=== PATIENT | male | born 1970 | race Caucasian/White ===

== ENCOUNTER 2022-03-04 18:10 | Inpatient (IN) ==
[2022-03-04] MEDS ORDERED: MULTI-VITAMIN INFUSION 10 ML, THIAMINE HCL 100 MG, FOLIC ACID 1 MG in SODIUM CHLORIDE 0... IV ONE (18:43)
--- NOTE | 2022-03-04 18:44 | Emergency Department Note ---
Impression & Plan Acute depression, Alcohol abuse, Elevated LFTs, Thrombocytopenia ED Provider Note Name: LD KEE Age: 51 Sex: M Arrives Via: Walk-In Informant: Patient, ED Provider: Art Velasquez MD Chief Complaint: Mental Health evaluation Impression: As per impressions above Medical Decision Makin-year-old gentleman who is never been to this facility has a history of hypertension, dyslipidemia, anxiety/depression, ADHD arrives for evaluation of worsening depression and generalized malaise. In addition of this patient is also having episodes of severe rage and anger. Initially patient was adamant that this was medically induced. I discussed the fact that he admits to be drinking each evening he has tremors as would be expected with some mild wit hdrawal and his LFTs are elevated with a low platelet. He also has evidence of age varying bruising and abrasions over arms legs consistent with bumping into things. I suspect he drinks more than he is willing to he denies any history of DTs or seizure. His denies this happening either. After long discussion with patient he really does feel that he needs psychiatric management. He states that he is severely depressed and things are now right in his head. I not feel that he acutely needs hospitalization given no previous DTs or issues with stopping alcohol. He is adamant no suicide attempt or any thoughts of harm to self prior to arrival thus I do not think the LFT elevation requires hospitalization at this time. I did note that it would have to be followed up by his PCP as well. At this time patient is a voluntary hospitalization for psychiatric illness. Bed placement is being attempted on a 201. Prior Medical Record and Triage/Nursing Notes reviewed by Me Additional history obtained from chart Differentials:Mood disorder, infection, hypoglycemia, electrolyte abnormalities, cardiac sources, intracerebral event, toxicologic, trauma, neurologic, as well as other pathologies. Vital Signs: reviewed and remarkable for no significant abnormalities Interventions: nicotine patch, motrin po Labs:Reviewed and remarkable for elevated lfts, low platelets Consults: Case management - Plan 201 psychiatric hospitalization Plan: Disposition: Signed out to Dr Thomas Pending placement Condition: Good History of Present Illness:51-year-old gentleman arrives for evaluation of rage issues. Patient reportedly has been having worsening fatigue, weight loss, anger, tremulous amongst other symptoms. He has been following with his PCP down in [place] with reportedly having multiple labs testing and evaluations. Patient does admit that he drinks several large high alcohol beers an evening. He also notes that he has frequent falls and stumbling and injuries. He states he just does not heal well. He was reportedly treated for some sort of asthma exacerbation a couple weeks ago with steroids which helped. Patient states that he has no thoughts of harming himself or others but he is depressed. He says he has no energy. His son about 9 months ago when he admits he has been thinking about a lot recently. He has family members who have required psychiat travis hospitalization. Patient denies any fevers, chills, headache, chest pain, shortness of breath, abdominal pain, back pain, urinary/bowel symptoms or other concerning signs or symptoms. He does note that he gets lightheaded when he stands and his blood pressure drops. Per patient reportedly makes statements about wanting to kill or harm others when he gets enraged however patient denies that. He states he has no thoughts of harming anyone. ROS: See above HPI for pertinent positives & negatives. A total of 10 systems reviewed and were otherwise negative. Past Medical History:Hypertension, dyslipidemia, anxiety/depression, ADHD Past Surgical History:Multiple back surgeries Family History:States sister and mother have autoimmune disease Social History:Currently unemployed, stable Home Medications:See Below Allergies:nkda Vitals:Blood Pressure: 119/92, Pulse 100, RR 16, T 3.6C, O2 99% on RA Physical Exam: GENERAL: Patient is well appearing and in mild distress. Tremulous (declines Ativan) HEAD: Small abrasion right upper posterior scalp, no TTP EYES: No scleral icterus, unremarkable pupils. ENT: Mucous membranes moist, no nasal congestion. NECK: No masses appreciated, nomeningismus, trachea is midline. RESPIRATORY: No dyspnea. Clear to auscultation and equal bilaterally. No wheeze, no rhonchi. CARDIOVASCULAR: Regular rate and rhythm.No murmurs, rubs, gallops appreciated. GASTROINTESTINAL: Abdomen soft, non-tender, no peritonitis.Bowel sounds positive.No masses appreciated. BACK: No midline tenderness, no CVA tenderness EXTREMITIES: Varying aged bruising/abrasions over arms/legs. Normal motion all extremities, no cyanosis, no edema. NEUROLOGIC: Alert and oriented, no acute motor or sensory deficits, no focal weakness, cranial nerves grossly intact. SKIN: No rash, no jaundice, no diaphoresis. PSYCH: Sad/depressed/anxious, denies suicidal ideation, calm, cooperative GCS: 15 ED Course: Times/Reassessments: Repeat evaluations patient is now stating that he thinks his primary issue is his psychiatric illness. He does wish to be admitted for psychiatric placement. He continues to have no evidence of fulminant withdrawal other than a mild tremor. Per patient and he is over 24 hours since last drink of alcohol Art Velasquez MD Past Med/Surg History Social History Smoking Status: Unknown if ever smoked Feels Safe at Home: Yes Home Meds Home Medications Medication Instructions Recorded Confirmed alprazolam 2 mg tablet 2 mg PO BID PRN Anxiety 03/04/22 03/04/22 cyanocobalamin (vitamin B-12) 1,000 mcg IM WK 03/04/22 03/04/22 1,000 mcg/mL injection solution cyclobenzaprine 5 mg tablet 5 mg PO TID PRN Pain 03/04/22 03/04/22 dextroamphetamine-amphetamine 10 10 mg PO HS 03/04/22 03/04/22 mg tablet dextroamphetamine-amphetamine 15 15 mg PO BID 03/04/22 03/04/22 mg tablet epinephrine 0.3 mg/0.3 mL 0.3 mg IM PRN Allergic Reaction 03/04/22 injection, auto-injector escitalopram oxalate 20 mg tablet 20 mg PO DAILY 03/04/22 03/04/22 lisinopril 40 mg tablet 40 mg PO DAILY 03/04/22 03/04/22 metoprolol tartrate 25 mg tablet 25 mg PO BID 03/04/22 03/04/22 quetiapine 100 mg tablet 100 mg PO HS 03/04/22 03/04/22 Results & Data (ED) Vital Signs Vital Signs - 24 hr 03/04/22 18:13 03/04/22 22:00 03/04/22 23:26 Temperature 36.6 C Temperature Source Temporal Artery Scan Pulse Rate 100 H Pulse Rate [Right Finger] 90 59 L Pulse Rhythm [Right Finger] Regular Pulse Strength [Right Finger] Normal Respiratory Rate 16 20 18 Respiratory Effort / Characteristics Non-Labored Non-Labored Non-Labored Spontaneous Respiratory Depth Normal Normal Normal Respiratory Pattern Regular Blood Pressure 119/92 Blood Pressure [Right Arm] 138/90 128/73 Blood Pressure Mean 101 Blood Pressure Mean [Right Arm] 106 91 Blood Pressure Position [Right Arm] Lying Pulse Oximetry 99 98 94 Oxygen Delivery Method Room Air Room Air Room Air Sepsis Recent Fever Within 48 Hours No Sepsis New/Unexplained Change in Mental Status No Sepsis Action Taken by Nursing No Action Required Laboratory Data Result diagrams: 03/04/22 19:33 03/04/22 19:33 Lab Results 03/04/22 03/04/22 03/04/22 Range/Units 18:26 18:26 19:33 WBC 8.94 (4.8-10.8) K/ul RBC 5.48 (4.63-6.08) M/uL Hgb 16.5 (14.0-18.0) g/dl Hct 49.7 (40.1-51.0) % MCV 90.7 (80.0-100.0) fL MCH 30.1 (25.0-34.0) pg MCHC 33.2 (32.0-36.0) g/dL RDW Std Deviation 51.0 H (36.4-46.3) fL RDW Coeff of Robert 15.3 H (11.5-14.5) % Plt Count 119 L (130-400) K/uL MPV 13.1 H (9.4-12.4) fL Immature Gran % (Auto) 0.4 % Neut % (Auto) 81.6 % Lymph % (Auto) 8.7 % [place] % (Auto) 8.4 % Eos % (Auto) 0.2 % Baso % (Auto) 0.7 % Neut # (Auto) 7.29 H (1.4-6.5) K/uL Lymph # (Auto) 0.78 L (1.2-3.4) K/uL [place] # (Auto) 0.75 (0.24-0.82) K/uL Eos # (Auto) 0.02 (0-0.50) K/uL Baso # (Auto) 0.06 (0-0.2) K/uL Immature Gran # (Auto) 0.04 H (0.00-0.02) K/uL PT (9.0-12.0) Seconds INR (0.9-1.1) APTT (21.0-31.0) Seconds PTT Ratio Sodium (136-145) mmol/L Potassium (3.5-5.1) mmol/L Chloride (98-107) mmol/L Carbon Dioxide (21-32) mmol/L Anion Gap (3-11) BUN (6-23) mg/dl Creatinine (0.6-1.4) mg/dl Est Cr Clr Drug Dosing ml/min Est GFR ( Amer) ml/min Est GFR (Non-Af Amer) ml/min BUN/Creatinine Ratio (10-20) Glucose (70-99(Fasting)) mg/dl Calcium (8.5-10.1) mg/dl Total Bilirubin (0.2-1.0) mg/dl AST (13-39) U/L ALT (7-52) U/L Alkaline Phosphatase (34-104) U/L Total Creatine Kinase (30-223) U/L Total Protein (6.0-8.3) gm/dl Albumin (3.4-5.0) gm/dl Globulin (2.5-4.0) gm/dl Albumin/Globulin Ratio (0.9-2) TSH (0.300-4.500) uIu/ml Urine Color [place] Urine Appearance Clear (Clear) Urine pH 5.5 (4.5-7.5) Ur Specific [place] 1.019 (1.000-1.030) Urine Protein Negative (Negative) Urine Glucose (UA) Negative (Negative) Urine Ketones Negative (Negative) Urine Blood Negative (Negative) Urine Nitrite Negative (Negative) Urine Bilirubin Negative (Negative) Urine Urobilinogen Negative (Negative) Ur Leukocyte Esterase Negative (Negative) Salicylates (3.0-30) mg/dl Urine Opiates Screen Neg (Neg) Ur Methadone, Qual Neg (Neg) Acetaminophen (10-30) ug/ml Urine Barbiturates Neg (Neg) Ur Phencyclidine (PCP) Neg (Neg) U Amphetamin/Meth Scrn Pos H (Neg) MDMA (Ecstasy) Screen Neg (Neg) U Benzodiazepines Scrn Pos H (Neg) Ur Cocaine Metabolite Neg (Neg) U Marijuana (THC) Screen Pos H (Neg) Ethyl Alcohol mg/dL (<10.0) mg/dl SARS-CoV-2, RNA, NAAT (NEGATIVE) 03/04/22 03/04/22 03/04/22 Range/Units 19:33 19:33 19:33 WBC (4.8-10.8) K/ul RBC (4.63-6.08) M/uL Hgb (14.0-18.0) g/dl Hct (40.1-51.0) % MCV (80.0-100.0) fL MCH (25.0-34.0) pg MCHC (32.0-36.0) g/dL RDW Std Deviation (36.4-46.3) fL RDW Coeff of Robert (11.5-14.5) % Plt Count (130-400) K/uL MPV (9.4-12.4) fL Immature Gran % (Auto) % Neut % (Auto) % Lymph % (Auto) % [place] % (Auto) % Eos % (Auto) % Baso % (Auto) % Neut # (Auto) (1.4-6.5) K/uL Lymph # (Auto) (1.2-3.4) K/uL [place] # (Auto) (0.24-0.82) K/uL Eos # (Auto) (0-0.50) K/uL Baso # (Auto) (0-0.2) K/uL Immature Gran # (Auto) (0.00-0.02) K/uL PT (9.0-12.0) Seconds INR (0.9-1.1) APTT (21.0-31.0) Seconds PTT Ratio Sodium 136 (136-145) mmol/L Potassium 4.2 (3.5-5.1) mmol/L Chloride 100 (98-107) mmol/L Carbon Dioxide 28 (21-32) mmol/L Anion Gap 8 (3-11) BUN 16 (6-23) mg/dl Creatinine 1.03 (0.6-1.4) mg/dl Est Cr Clr Drug Dosing 104.4 ml/min Est GFR ( Amer) 98.4 ml/min Est GFR (Non-Af Amer) 84.9 ml/min BUN/Creatinine Ratio 15.5 (10-20) Glucose 100 H (70-99(Fasting)) mg/dl Calcium 9.6 (8.5-10.1) mg/dl Total Bilirubin 1.4 H (0.2-1.0) mg/dl AST 53 H (13-39) U/L ALT 71 H (7-52) U/L Alkaline Phosphatase 112 H (34-104) U/L Total Creatine Kinase 140 (30-223) U/L Total Protein 7.9 (6.0-8.3) gm/dl Albumin 4.5 (3.4-5.0) gm/dl Globulin 3.4 (2.5-4.0) gm/dl Albumin/Globulin Ratio 1.3 (0.9-2) TSH 2.418 (0.300-4.500) uIu/ml Urine Color Urine Appearance (Clear) Urine pH (4.5-7.5) Ur Specific [place] (1.000-1.030) Urine Protein (Negative) Urine Glucose (UA) (Negative) Urine Ketones (Negative) Urine Blood (Negative) Urine Nitrite (Negative) Urine Bilirubin (Negative) Urine Urobilinogen (Negative) Ur Leukocyte Esterase (Negative) Salicylates < 3.0 L (3.0-30) mg/dl Urine Opiates Screen (Neg) Ur Methadone, Qual (Neg) Acetaminophen < 3 L (10-30) ug/ml Urine Barbiturates (Neg) Ur Phencyclidine (PCP) (Neg) U Amphetamin/Meth Scrn (Neg) MDMA (Ecstasy) Screen (Neg) U Benzodiazepines Scrn (Neg) Ur Cocaine Metabolite (Neg) U Marijuana (THC) Screen (Neg) Ethyl Alcohol mg/dL (<10.0) mg/dl SARS-CoV-2, RNA, NAAT (NEGATIVE) 03/04/22 03/04/22 03/04/22 Range/Units 19:33 19:33 21:41 WBC (4.8-10.8) K/ul RBC (4.63-6.08) M/uL Hgb (14.0-18.0) g/dl Hct (40.1-51.0) % MCV (80.0-100.0) fL MCH (25.0-34.0) pg MCHC (32.0-36.0) g/dL RDW Std Deviation (36.4-46.3) fL RDW Coeff of Robert (11.5-14.5) % Plt Count (130-400) K/uL MPV (9.4-12.4) fL Immature Gran % (Auto) % Neut % (Auto) % Lymph % (Auto) % [place] % (Auto) % Eos % (Auto) % Baso % (Auto) % Neut # (Auto) (1.4-6.5) K/uL Lymph # (Auto) (1.2-3.4) K/uL [place] # (Auto) (0.24-0.82) K/uL Eos # (Auto) (0-0.50) K/uL Baso # (Auto) (0-0.2) K/uL Immature Gran # (Auto) (0.00-0.02) K/uL PT 10.1 (9.0-12.0) Seconds INR 0.9 (0.9-1.1) APTT 25.9 (21.0-31.0) Seconds PTT Ratio 0.9 Sodium (136-145) mmol/L Potassium (3.5-5.1) mmol/L Chloride (98-107) mmol/L Carbon Dioxide (21-32) mmol/L Anion Gap (3-11) BUN (6-23) mg/dl Creatinine (0.6-1.4) mg/dl Est Cr Clr Drug Dosing ml/min Est GFR ( Amer) ml/min Est GFR (Non-Af Amer) ml/min BUN/Creatinine Ratio (10-20) Glucose (70-99(Fasting)) mg/dl Calcium (8.5-10.1) mg/dl Total Bilirubin (0.2-1.0) mg/dl AST (13-39) U/L ALT (7-52) U/L Alkaline Phosphatase (34-104) U/L Total Creatine Kinase (30-223) U/L Total Protein (6.0-8.3) gm/dl Albumin (3.4-5.0) gm/dl Globulin (2.5-4.0) gm/dl Albumin/Globulin Ratio (0.9-2) TSH (0.300-4.500) uIu/ml Urine Color Urine Appearance (Clear) Urine pH (4.5-7.5) Ur Specific [place] (1.000-1.030) Urine Protein (Negative) Urine Glucose (UA) (Negative) Urine Ketones (Negative) Urine Blood (Negative) Urine Nitrite (Negative) Urine Bilirubin (Negative) Urine Urobilinogen (Negative) Ur Leukocyte Esterase (Negative) Salicylates (3.0-30) mg/dl Urine Opiates Screen (Neg) Ur Methadone, Qual (Neg) Acetaminophen (10-30) ug/ml Urine Barbiturates (Neg) Ur Phencyclidine (PCP) (Neg) U Amphetamin/Meth Scrn (Neg) MDMA (Ecstasy) Screen (Neg) U Benzodiazepines Scrn (Neg) Ur Cocaine Metabolite (Neg) U Marijuana (THC) Screen (Neg) Ethyl Alcohol mg/dL < 10.0 (<10.0) mg/dl SARS-CoV-2, RNA, NAAT NEGATIVE (NEGATIVE) Administered Medications Alprazolam (Alprazolam 0.5 Mg Tablet) 2 mg PO BID PRN PRN Reason: Anxiety Stop: 04/03/22 22:29 Last Admin: 03/04/22 23:23 Dose: 2 mg Documented By: NEVA Metoprolol Tartrate (Metoprolol Tartrate 25 Mg Tab) 25 mg PO BID GABO Stop: 04/03/22 22:29 Last Admin: 03/04/22 23:19 Dose: 25 mg Documented By: NEVA Non-Formulary Medication (Dextroamphetamine-Amphetamine) 10 mg PO HS GABO Stop: 04/03/22 22:34 Last Admin: 03/04/22 23:23 Dose: Not Given Documented By: NEVA Quetiapine Fumarate (Quetiapine Fumarate 100 Mg Tablet) 100 mg PO HS [facility] Stop: 04/03/22 22:29 Last Admin: 03/04/22 23:19 Dose: 100 mg Documented By: NEVA Discontinued Medications Multivitamins 10 ml/ Thiamine HCl 100 mg/ Folic Acid 1 mg/Sodium Chloride 1,011.2 mls @ 1,011.2 mls/hr IV .Q1H ONE Stop: 03/04/22 19:42 Last Infusion: 03/04/22 20:24 Dose: 0 mls/hr Documented By: Admin: 03/04/22 19:10 Dose: 1,011.2 mls/hr Documented By: ARIA Ibuprofen (Ibuprofen 600 Mg Tab) 600 mg PO NOW STA Stop: 03/05/22 00:04 Last Admin: 03/05/22 00:06 Dose: 600 mg Documented By: NEVA Nicotine (Nicotine 14 Mg/24 Hr Patch) 14 mg TD NOW STA Stop: 03/04/22 22:04 Last Admin: 03/04/22 22:15 Dose: 14 mg Documented By: CHRISTIANO Discharge Plan Visit Data Chief Complaint: Mental Health Evaluation Stated Complaint: MENTAL HEALTH EVAL ED Provider: Art Velasquez Discharge Problem: Acute depression, Alcohol abuse, Elevated LFTs, Thrombocytopenia Forms Stand Alone Forms: [facility] [employer], Suicide Prevention Resources Prescriptions Prescriptions: No Action metoprolol tartrate 25 mg tablet 25 mg PO BID quetiapine 100 mg tablet 100 mg PO HS dextroamphetamine-amphetamine 10 mg tablet 10 mg PO HS cyanocobalamin (vitamin B-12) 1,000 mcg/mL solution 1,000 mcg IM WK dextroamphetamine-amphetamine 15 mg tablet 15 mg PO BID alprazolam 2 mg tablet 2 mg PO BID PRN (Reason: Anxiety) epinephrine 0.3 mg/0.3 mL auto-injector 0.3 mg IM PRN (Reason: Allergic Reaction) lisinopril 40 mg tablet 40 mg PO DAILY escitalopram oxalate 20 mg tablet 20 mg PO DAILY cyclobenzaprine 5 mg tablet 5 mg PO TID PRN (Reason: Pain) Referrals Referrals: Irving Kaiser DO [Primary Care Provider] -
[2022-03-04 18:58] LABS: Appearance Urine Clear (Clear); Bilirubin Urine Negative (Negative); Blood Urine Negative (Negative); Color Urine Orange; Glucose Urine UA Negative (Negative); Ketones Urine Negative (Negative); Leukocyte Esterase Urine Negative (Negative); Nitrite Urine Negative (Negative); Protein Urine Negative (Negative); Specific Gravity Urine 1.019 (1.000-1.030); Urobilinogen Urine Negative (Negative); pH Urine 5.5 (4.5-7.5)
[2022-03-04 19:21] LABS: Amphetamines+Metham, Urine Pos (Neg); Barbiturates, Urine Neg (Neg); Benzodiazepine, Urine Pos (Neg); Cocaine, Urine Neg (Neg); MDMA (Ecstacy), Urine Neg (Neg); Methadone, Urine Neg (Neg); Opiate, Urine Neg (Neg); Phencyclidine, Urine Neg (Neg)
[2022-03-04 19:45] LABS: Hematocrit (blood only) 49.7 % (40.1-51.0); Hemoglobin 16.5 g/dl (14.0-18.0); Mean Corpuscular Hemoglobin 30.1 pg (25.0-34.0); Mean Corpuscular Hgb Conc 33.2 g/dL (32.0-36.0); Mean Corpuscular Volume 90.7 fL (80.0-100.0); RDW Coefficient of Variation 15.3 % (11.5-14.5); Red Blood Count 5.48 M/uL (4.63-6.08); White Blood Count 8.94 K/ul (4.8-10.8)
[2022-03-04 19:49] LABS: Basophils # (auto) 0.06 K/uL (0-0.2); Basophils % (auto) 0.7 %; Eosinophils # (auto) 0.02 K/uL (0-0.50); Eosinophils % (auto) 0.2 %; Immature Granulocytes # (auto) 0.04 K/uL (0.00-0.02); Immature Granulocytes % (auto) 0.4 %; Lymphocytes # (auto) 0.78 K/uL (1.2-3.4); Lymphocytes % (auto) 8.7 %; Mean Platelet Volume 13.1 fL (9.4-12.4); Monocytes # (auto) 0.75 K/uL (0.24-0.82); Monocytes % (auto) 8.4 %; Neutrophils # (auto) 7.29 K/uL (1.4-6.5); Neutrophils % (auto) 81.6 %; Platelet Count 119 K/uL (130-400)
[2022-03-04 19:57] LABS: INR 0.9 (0.9-1.1); Partial Thromboplastin Ratio 0.9; Partial Thromboplastin Time 25.9 Seconds (21.0-31.0); Prothrombin Time 10.1 Seconds (9.0-12.0)
[2022-03-04 20:07] LABS: Albumin Globulin Ratio 1.3 (0.9-2); Albumin Level 4.5 gm/dl (3.4-5.0); BUN Creatinine Ratio 15.5 (10-20); Bilirubin,Total 1.4 mg/dl (0.2-1.0); Calcium 9.6 mg/dl (8.5-10.1); Creatinine Clr Calc Pharmacy 104.4 ml/min; Est GFR (African American) 98.4 ml/min; Est GFR (Non-African American) 84.9 ml/min; Globulin 3.4 gm/dl (2.5-4.0); Potassium 4.2 mmol/L (3.5-5.1); Total Protein 7.9 gm/dl (6.0-8.3)
[2022-03-04 20:10] LABS: Acetaminophen < 3 ug/ml (10-30); Salicylate < 3.0 mg/dl (3.0-30)
[2022-03-04] MEDS ORDERED: NICOTINE 14 MG/24 HR PATCH TD STA (22:03)
[2022-03-04] MEDS ORDERED: CYANOCOBALAMIN 1000 MCG/ML VIAL IM SCH (22:30)
[2022-03-04] MEDS ORDERED: NON-FORMULARY MEDICATION (Dextroamphetamine-Amphetamine 10 mg tablet) PO SCH (22:35)
[2022-03-04] MEDS: METOPROLOL TARTRATE 25 MG TAB PO SCH (23:19)
[2022-03-04] MEDS: QUEtiapine FUMARATE 100 MG TABLET PO SCH (23:19)
[2022-03-04] MEDS: ALPRAZolam 0.5 MG TABLET PO PRN (23:23)
[2022-03-05] MEDS ORDERED: IBUPROFEN 600 MG TAB PO STA (00:03)
--- NOTE | 2022-03-05 07:53 | Emergency Department Note ---
ED Visit Note Patient signed out to me at change of shift from Dr. Velasquez. Patient was depression and here voluntarily looking for inpatient treatment. Patient does admit to regular alcohol use. No prior history of alcohol withdrawal or hospitalization for alcohol related issues. No issues overnight during my shift. No evidence of evolving alcohol withdrawal. Patient rested comfortably. Patient signed out to Dr. Mccall pending disposition. .
--- NOTE | 2022-03-05 08:34 | Emergency Department Note ---
ED Visit Note ED DAILY OBSERVATION NOTE Date and Time:03/05/22 10:46 Interval History: Sign out received from Dr. Thomas who reviewed details of the encounter. Vital Signs: Reviewed vital signs. Limited Exam: Patient resting in bed. No abdominal tenderness. No slurred speech. No respiratory distress. Summary: Reviewed prior medical records and notes. Patient with depression and possibly some heavy alcohol use but no clear evidence of withdrawal. Patient complains of a little bit of chest discomfort still as well as some upset stomach and given PPI and Advil per his request. Ate a full breakfast. Patient wishing for inpatient voluntary treatment. Case management assisted with bed search. Does not appear to be in merna withdrawal at this time. Adderall dosing adjusted per psychiatric recommendation. Disposition: Signed out pending bed placement. .
[2022-03-05] MEDS ORDERED: DEXTROAMPHETAMINE AMPHETAMINE 15 MG PO SCH (09:00)
[2022-03-05] MEDS: METOPROLOL TARTRATE 25 MG TAB PO SCH ×2 (09:23→22:01)
[2022-03-05] MEDS: lisinopril 40 MG TAB PO SCH (09:24)
[2022-03-05] MEDS: ESCITALOPRAM OXALATE 20 MG TAB PO SCH (09:24)
[2022-03-05] MEDS: AMPHETAMINE ASP/SULF/DEXTRAMPH 10 MG TAB PO SCH ×3 (09:40→15:10)
[2022-03-05] MEDS: AMPHETAMINE ASP/SULF/DEXTRAMPH 5 MG TAB PO SCH ×3 (09:40→15:10)
[2022-03-05] MEDS ORDERED: PANTOprazole 40 MG TAB PO STA (09:58)
[2022-03-05] MEDS ORDERED: IBUPROFEN 200 MG TAB PO STA (09:58)
[2022-03-05] MEDS: ALPRAZolam 0.5 MG TABLET PO PRN ×2 (10:04→22:02)
--- NOTE | 2022-03-05 11:59 | Electrocardiogram Report ---
Test Reason : Blood Pressure : / mmHG Vent. Rate : 089 BPM Atrial Rate : 089 BPM P-R Int : 150 ms QRS Dur : 080 ms QT Int : 370 ms P-R-T Axes : 063 052 049 degrees QTc Int : 450 ms Normal sinus rhythm Normal ECG No previous ECGs available Confirmed by Ludin Remy ([id number]) on 03/05/2022 11:59:31 AM Referred By: REFERRED SELF Confirmed By:Ludin Remy
[2022-03-05] MEDS: NICOTINE POLACRILEX 2 MG GUM MT PRN ×3 (12:32→22:02)
--- NOTE | 2022-03-05 12:43 | Communication Note ---
Date of Service: March 05, 2022 administrative review of patient's chart as anticipated boarding and is prescribed psychiatric medications. 201 status. VS stable overnight without evidence of withdrawal and does have a prn Xanax order. Reviewed PDMP and rx's appear to be prescribed by Dr. Kaiser in [place]. Adderall is currently ordered for BID (which will default to an hs dose) and hs. Alerted ED CM as unlikely patient would be prescribed a stimulant at bedtime and could impact sleep. Typical dosage times in the hospital for Adderall IR 8 am and 2 pm and typically no need for 3rd dose as not working, etc. Dr. Mccall to be notified. Patient remains in window for alcohol withdrawal so ED team to consider AWSS protocol. Bed search is ongoing. If remains in ED likely to become formal consult.
[2022-03-05] MEDS: PSYLLIUM or GUAR GUM FIBER POWDER PACKET PO SCH (13:31)
[2022-03-05] MEDS ORDERED: AMPHETAMINE ASP/SULF/DEXTRAMPH 10 MG TAB PO SCH ×2 (21:00)
--- NOTE | 2022-03-05 21:55 | Emergency Department Note ---
ED Visit Note ED Physician Sign Out Note: 51-year-old gentleman with depression, alcoholism and requesting hospitalization for psychiatric care signed out to me by Dr. Lawler still pending placement on a 201 basis. Patient ambulating to bathroom and requesting some Tylenol Motrin for aches and pains. He was signed out to Dr. Thomas pending further attempts at placement. Art Velasquez MD
[2022-03-05] MEDS: QUEtiapine FUMARATE 100 MG TABLET PO SCH (22:01)
[2022-03-06] MEDS ORDERED: IBUPROFEN 600 MG TAB PO PRN (00:03)
--- NOTE | 2022-03-06 05:49 | Emergency Department Note ---
ED Visit Note Patient signed out to me at change of shift from Dr. Velasquez. Patient still here voluntarily pending placement for depression. Patient with no evidence of evolving alcohol withdrawal. No new or evolving symptoms present during my overnight shift. Patient signed out to Dr. Mccall in the morning. .
[2022-03-06] MEDS: ACETAMINOPHEN 500 MG TAB PO PRN ×3 (06:32→17:42)
[2022-03-06] MEDS: NICOTINE POLACRILEX 2 MG GUM MT PRN ×3 (06:43→20:38)
--- NOTE | 2022-03-06 07:22 | Emergency Department Note ---
ED Visit Note ED DAILY OBSERVATION NOTE Date and Time: 03/06/2022 Interval History: Sign out received from Dr. Thomas who reviewed details of the encounter. Vital Signs: reviewed vitals Limited Exam: Patient moving all extremities without slurred speech. Has been ambulatory to the bathroom. Need a full breakfast. In no respiratory distress Summary: Patient here seeking voluntary inpatient treatment related to depression. Bed search continues today. As needed ibuprofen and Tylenol ordered for his chronic achiness in his joints and arms. States his stomach is doing okay but does not want his Protonix today. Restless some frustration with the HVAC blowing air on him. Case management discussed with the states there was some concerns regarding the patient's anger and other family members. Patient is tentatively accepted to [facility] for inpatient psychiatric care tomorrow pending insurance authorization. Insurance company is not open till tomorrow morning. Disposition: Signed out pending hopeful disposition tomorrow morning. .
[2022-03-06] MEDS ORDERED: AMPHETAMINE ASP/SULF/DEXTRAMPH 10 MG TAB PO SCH (08:00)
[2022-03-06] MEDS: AMPHETAMINE ASP/SULF/DEXTRAMPH 10 MG TAB PO SCH ×2 (08:30→14:10)
[2022-03-06] MEDS: ESCITALOPRAM OXALATE 20 MG TAB PO SCH (08:30)
[2022-03-06] MEDS: AMPHETAMINE ASP/SULF/DEXTRAMPH 5 MG TAB PO SCH ×2 (08:30→14:11)
[2022-03-06] MEDS: lisinopril 40 MG TAB PO SCH (08:31)
[2022-03-06] MEDS: METOPROLOL TARTRATE 25 MG TAB PO SCH ×2 (08:34→20:25)
[2022-03-06] MEDS ORDERED: IBUPROFEN 200 MG TAB PO PRN (09:32)
[2022-03-06] MEDS: ALPRAZolam 0.5 MG TABLET PO PRN (12:12)
[2022-03-06] MEDS: PSYLLIUM or GUAR GUM FIBER POWDER PACKET PO SCH (15:57)
[2022-03-06] MEDS: CYCLOBENZAPRINE HCL 5 MG TAB PO PRN (16:22)
[2022-03-06] MEDS: QUEtiapine FUMARATE 100 MG TABLET PO SCH (20:25)
--- NOTE | 2022-03-06 21:27 | Emergency Department Note ---
ED Visit Note ED Physician Sign Out Note: 51-year-old male awaiting psychiatric placement for depression, irritability, rage issues. Already known to me from previous evaluation earlier in his stay as well as yesterday afternoon monitoring. No issues over the few hours this evening. He was signed out to Dr. Thomas pending placement. Reportedly does have a bed at a facility tomorrow morning. Art Velasquez MD
--- NOTE | 2022-03-06 21:34 | Emergency Department Note ---
ED Visit Note Date and Time: 03/06/2022 Interval History: Sign out received from Dr. Mccall who reviewed details of the encounter. Patient was pending insurance approval for transfer to [facility]. Summary: Patient was re-evaluated at 2109 and vital signs reviewed. Disposition: 03/06/2022 at 2130 Total Time: 6.5Hrs .
[2022-03-07] MEDS: ACETAMINOPHEN 500 MG TAB PO PRN (00:40)
[2022-03-07 03:42] LABS: 7-Aminoclonaz, Confirm NEGATIVE ng/mL (<25); Amphetamine Urine, Confirm 1520 ng/mL (<250); Hydro-Alp Ur, GC/MS 712 ng/mL (<25); Hydroxyethylflurazepam, Conf NEGATIVE ng/mL (<50); Hydroxymidazolam Ur, GC/MS NEGATIVE ng/mL (<50); Hydroxytriazolam NEGATIVE ng/mL (<50); Lorazepam, Ur GC/MS 910 ng/mL (<50); Marijuana Quant, GCMS Urine 238 ng/mL (<5); Methamphetamine, Ur Confirm NEGATIVE ng/mL (<250); Nordiazepam, Confirm NEGATIVE ng/mL (<50); Oxazepam Ur, GC/MS NEGATIVE ng/mL (<50); Temazepam, Confirm NEGATIVE ng/mL (<50)
[2022-03-07] MEDS: CYCLOBENZAPRINE HCL 5 MG TAB PO PRN (04:58)
[2022-03-07] MEDS: AMPHETAMINE ASP/SULF/DEXTRAMPH 10 MG TAB PO SCH ×2 (07:57→15:32)
[2022-03-07] MEDS: AMPHETAMINE ASP/SULF/DEXTRAMPH 5 MG TAB PO SCH (07:57)
--- NOTE | 2022-03-07 08:23 | Emergency Department Note ---
ED Visit Note Patient signed out to me at change of shift from Dr. Velasquez. Patient here voluntarily. Patient has been here several nights, however continues to be calm and cooperative. No evidence of alcohol withdrawal. Patient has been accepted at [facility]. Case management informs me we are awaiting final insurance authorization this morning before he can be transferred. No other new or evolving symptoms overnight. Patient with depression, daily alcohol use, and passive SI. .
[2022-03-07] MEDS: METOPROLOL TARTRATE 25 MG TAB PO SCH ×2 (08:53→21:57)
[2022-03-07] MEDS ORDERED: PSYLLIUM or GUAR GUM FIBER POWDER PACKET PO SCH (09:00)
[2022-03-07] MEDS: lisinopril 40 MG TAB PO SCH (09:59)
[2022-03-07] MEDS: ESCITALOPRAM OXALATE 20 MG TAB PO SCH (09:59)
--- NOTE | 2022-03-07 11:51 | Emergency Department Note ---
ED Visit Note The patient was taken in signout from [facility] at the change of shift. The patient was initially seen by Dr. Velasquez on 03/05/2022. Please see that note for details. The patient was awaiting bed search for voluntary admission for depression, passive SI in the setting of daily alcohol use. Patient had been medically cleared and showed no symptoms of alcohol withdrawal. The patient was anticipated to be excepted to [facility] today. However, due to insurance issues he was subsequently excepted here to . 201 signed. Observation completed: 03/07/2022 @ 1155. Total hours: 65.75 hours.
[2022-03-07] MEDS ORDERED: hydrOXYzine HCl 25 MG TAB PO PRN (13:08)
[2022-03-07] MEDS ORDERED: ALUMINUM/MAGNESIUM SUSP 30 ML UDC PO PRN (13:08)
[2022-03-07] MEDS ORDERED: BISMUTH SUBSALICYLATE LIQD 236 ML PO PRN (13:08)
[2022-03-07] MEDS ORDERED: MAGNESIUM HYDROXIDE SUSP 30 ML UDC PO PRN (13:08)
[2022-03-07] MEDS ORDERED: SODIUM CHLORIDE 0.65% NA SOLN 45 ML (OCEAN) PRN (13:08)
[2022-03-07] MEDS ORDERED: LORazepam 1 MG TAB PO PRN ×3 (13:15→14:09)
[2022-03-07] MEDS ORDERED: Ativan PO Alcohol Withdrawal--Active Protocol PO PRN (14:09)
[2022-03-07] MEDS ORDERED: LORazepam 1 MG TAB PO STA (14:36)
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
[2022-03-07] MEDS ORDERED: GABAPENTIN 100 MG CAP PO SCH (14:45)
[2022-03-07] MEDS: GABAPENTIN 300 MG CAP PO SCH ×2 (15:31→21:57)
[2022-03-07] MEDS: FOLIC ACID 1 MG TAB PO SCH (15:32)
[2022-03-07] MEDS: NICOTINE POLACRILEX 2 MG GUM MT PRN ×2 (15:38→21:56)
[2022-03-07] MEDS: ACETAMINOPHEN 325 MG TAB PO PRN (21:07)
[2022-03-07] MEDS ORDERED: QUEtiapine FUMARATE 100 MG TABLET PO SCH (22:00)
[2022-03-07] MEDS: PSYLLIUM or GUAR GUM FIBER POWDER PACKET PO SCH (22:31)
[2022-03-08] MEDS: hydrOXYzine HCl 25 MG TAB PO PRN ×2 (03:14→23:33)
[2022-03-08] MEDS: ACETAMINOPHEN 325 MG TAB PO PRN ×3 (03:15→19:20)
[2022-03-08] MEDS: LORazepam 1 MG TAB PO PRN ×2 (04:26→16:33)
[2022-03-08] MEDS: PSYLLIUM or GUAR GUM FIBER POWDER PACKET PO SCH (08:10)
[2022-03-08] MEDS: AMPHETAMINE ASP/SULF/DEXTRAMPH 10 MG TAB PO SCH ×2 (08:11→14:21)
[2022-03-08] MEDS: FOLIC ACID 1 MG TAB PO SCH (08:13)
[2022-03-08] MEDS: ESCITALOPRAM OXALATE 20 MG TAB PO SCH (08:13)
[2022-03-08] MEDS: METOPROLOL TARTRATE 25 MG TAB PO SCH ×2 (08:14→21:46)
[2022-03-08] MEDS: GABAPENTIN 300 MG CAP PO SCH ×2 (08:14→14:22)
[2022-03-08] MEDS: THIAMINE HCL 100 MG TAB PO SCH (08:14)
[2022-03-08] MEDS: lisinopril 40 MG TAB PO SCH (08:14)
[2022-03-08] MEDS: NICOTINE POLACRILEX 2 MG GUM MT PRN ×2 (09:12→16:09)
[2022-03-08] MEDS ORDERED: CYCLOBENZAPRINE HCL 5 MG TAB PO PRN (12:31)
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
[2022-03-08] MEDS: GABAPENTIN 600 MG TAB PO SCH (21:47)
[2022-03-09] MEDS: GABAPENTIN 300 MG CAP PO SCH ×2 (06:38→13:20)
[2022-03-09] MEDS: AMPHETAMINE ASP/SULF/DEXTRAMPH 10 MG TAB PO SCH ×2 (08:34→13:19)
[2022-03-09] MEDS: FOLIC ACID 1 MG TAB PO SCH (08:35)
[2022-03-09] MEDS: lisinopril 40 MG TAB PO SCH (08:35)
[2022-03-09] MEDS: ESCITALOPRAM OXALATE 20 MG TAB PO SCH (08:35)
[2022-03-09] MEDS: METOPROLOL TARTRATE 25 MG TAB PO SCH ×2 (08:36→20:40)
[2022-03-09] MEDS: THIAMINE HCL 100 MG TAB PO SCH (08:36)
[2022-03-09] MEDS ORDERED: PSYLLIUM or GUAR GUM FIBER POWDER PACKET PO SCH (09:00)
[2022-03-09] MEDS: NICOTINE POLACRILEX 2 MG GUM MT PRN ×2 (11:53→21:36)
[2022-03-09] MEDS: hydrOXYzine HCl 25 MG TAB PO PRN (12:19)
[2022-03-09] MEDS: cephALEXin 500 MG CAP PO SCH ×3 (13:20→20:40)
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
[2022-03-09] MEDS: ACETAMINOPHEN 325 MG TAB PO PRN (15:15)
[2022-03-09] MEDS: LORazepam 1 MG TAB PO PRN (17:58)
[2022-03-09] MEDS: GABAPENTIN 600 MG TAB PO SCH (21:37)
[2022-03-09] MEDS: METAMUCIL PO SCH (21:38)
[2022-03-10] MEDS: ACETAMINOPHEN 325 MG TAB PO PRN ×2 (06:32→20:04)
[2022-03-10] MEDS: GABAPENTIN 300 MG CAP PO SCH ×2 (06:33→13:27)
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
[2022-03-10] MEDS: cephALEXin 500 MG CAP PO SCH ×4 (08:47→22:02)
[2022-03-10] MEDS: AMPHETAMINE ASP/SULF/DEXTRAMPH 10 MG TAB PO SCH ×2 (08:47→13:27)
[2022-03-10] MEDS: THIAMINE HCL 100 MG TAB PO SCH (08:49)
[2022-03-10] MEDS: METOPROLOL TARTRATE 25 MG TAB PO SCH ×2 (08:49→22:01)
[2022-03-10] MEDS: FOLIC ACID 1 MG TAB PO SCH (08:49)
[2022-03-10] MEDS: ESCITALOPRAM OXALATE 20 MG TAB PO SCH (08:49)
[2022-03-10] MEDS: lisinopril 40 MG TAB PO SCH (08:49)
[2022-03-10] MEDS: NICOTINE POLACRILEX 2 MG GUM MT PRN ×3 (13:28→21:55)
[2022-03-10] MEDS: METAMUCIL PO SCH (22:00)
[2022-03-10] MEDS: GABAPENTIN 600 MG TAB PO SCH (22:01)
[2022-03-10] MEDS: hydrOXYzine HCl 25 MG TAB PO PRN (23:24)
[2022-03-11] MEDS: AMPHETAMINE ASP/SULF/DEXTRAMPH 10 MG TAB PO SCH (07:37)
[2022-03-11] MEDS: GABAPENTIN 300 MG CAP PO SCH ×2 (07:38→14:15)
[2022-03-11] MEDS: cephALEXin 500 MG CAP PO SCH ×3 (09:32→17:15)
[2022-03-11] MEDS: lisinopril 40 MG TAB PO SCH (09:33)
[2022-03-11] MEDS: FOLIC ACID 1 MG TAB PO SCH (09:33)
[2022-03-11] MEDS: METOPROLOL TARTRATE 25 MG TAB PO SCH (09:33)
[2022-03-11] MEDS: THIAMINE HCL 100 MG TAB PO SCH (09:33)
[2022-03-11] MEDS: ESCITALOPRAM OXALATE 20 MG TAB PO SCH (09:33)
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
[2022-03-11] MEDS: NICOTINE POLACRILEX 2 MG GUM MT PRN (13:21)
[2022-03-11] MEDS ORDERED: AMPHETAMINE ASP/SULF/DEXTRAMPH 10 MG TAB PO SCH (14:00)
[2022-03-11] MEDS ORDERED: AMPHETAMINE ASP/SULF/DEXTRAMPH 5 MG TAB PO SCH (14:00)
== END 2022-03-11 17:17 | disposition home or self-care (01) | DRG 881 ==
LOC: ED 18:10 → 3S 03-07 11:09